=== PATIENT | female | born 1970 | race Caucasian/White ===

== ENCOUNTER 2023-06-08 19:12 | Outpatient (REF) | payer BC, SELFPAY | END 2023-06-08 19:13 | disposition home or self-care (01) | LOC: NCHCN 19:12 | PROVIDERS: PCP Nurse Practitioner Family; Visit Provider Family Medicine | DX: R39.9 Unspecified symptoms and signs involving the genitourinary system (principal); H81.10 Benign paroxysmal vertigo, unspecified ear; I10 Essential (primary) hypertension | CPT/HCPCS: 87086 ==